=== PATIENT | female | born 1965 | race Caucasian/White ===

== ENCOUNTER → 2018-05-07 | Outpatient (CLI) | payer BC ==
[2005-12-08 08:00] VITALS: PULSE 72; TEMP 97.6
== END ==
LOC: COL.RAD 10:11
DX: N92.1 Excessive and frequent menstruation with irregular cycle (principal)

== ENCOUNTER 2019-06-18 10:04 | Emergency (ER) | payer BC ==
[~2019-06-18] VITALS: Ht 154.9 cm; Wt 77.3 kg
[2019-06-18 10:40] VITALS: TEMP 97.8
[2019-06-18 11:28] LABS: BASO # 0.1 (0.0-0.2); BASO % 0.3 % (0.0-2.0); EOS # 0.1 (0.0-0.7); EOS % 0.7 % (0-4.0); GRAN # 12.2 (1.4-6.5); GRAN % 74.3 % (42.2-75.2); HEMATOCRIT 47.3 % (37.0-47.0); HEMOGLOBIN 15.8 g/dl (12.5-16.0); LYMPH # 3.1 (1.2-3.4); LYMPH % 18.6 % (20.0-51.0); MEAN CELL VOLUME 99 fl (80.0-100.0); MEAN CORPUSCULAR HEMOGLOBIN 33 pg (27.0-31.0); MEAN CORPUSCULAR HGB CONC 33 g/dl (33.0-37.0); MEAN PLATELET VOLUME 9.1 fl (7.4-10.4); MONO # 0.9 (0.1-0.6); MONO % 5.7 % (1.7-9.3); PLATELET COUNT 377 K/mm3 (130-400); REDCELL DISTRIBUTION WIDTH-CV 13.9 % (11.5-14.5)
[2019-06-18 11:42] LABS: ALBUMIN 4.8 gm/dL (3.5-5.0); BILIRUBIN,TOTAL 0.3 mg/dL (0.0-1.0); C-REACTIVE PROTEIN 0.8 mg/dL (0.0-0.9); CALCIUM 10.8 mg/dL (8.4-10.2); CREATININE, serum 0.53 (0.52-1.25); POTASSIUM 3.9 mmol/L (3.4-5.0); TOTAL PROTEIN 8.5 gm/dL (6.4-8.2)
[2019-06-18] MEDS ORDERED: GLUCOPHAGE500 MG/TAB PO (12:17)
[2019-06-18] MEDS ORDERED: LASIX 20MG TABL20 MG PO (12:17)
[2019-06-18] MEDS ORDERED: BENICAR40 MG PO (12:18)
[2019-06-18] MEDS ORDERED: PRAVACHOL10 MG PO (12:18)
[2019-06-18] MEDS ORDERED: FASTIN30 MG PO (12:18)
[2019-06-18 13:04] LABS: COLLECTION METHOD CLEAN CATCH
[2019-06-18 13:21] LABS: MUCOUS Present /lpf; PH 6 (5-8); URINE APPEARANCE Hazy; URINE BACTERIA Rare /hpf; URINE BILIRUBIN Negative (NEGATIVE); URINE BLOOD Negative (NEGATIVE); URINE COLOR Yellow; URINE GLUCOSE Negative (NEGATIVE); URINE KETONE Trace (NEGATIVE); URINE LEUKOCYTE ESTERASE 1+ (NEGATIVE); URINE NITRATE Negative (NEGATIVE); URINE PROTEIN(semi-quant) Negative (NEGATIVE); URINE UROBILINOGEN Negative (NEGATIVE)
[2019-06-18] MEDS ORDERED: OMNICEF 300MG300 MG PO (13:34)
[2019-06-18] MEDS ORDERED: NORCO 325 MG-51 TAB PO (13:35)
[2019-06-18 13:49] VITALS: BP 101/65; PULSE 88
[2019-06-20] MEDS ORDERED: CIPRO 500MG TA500 MG PO (16:46)
== END 2019-06-18 13:55 | disposition home or self-care (01) ==
LOC: COL.ER 10:04
PROVIDERS: Family Medicine
DX: N30.00 Acute cystitis without hematuria (principal); I10 Essential (primary) hypertension; E11.9 Type 2 diabetes mellitus without complications; Z98.890 Other specified postprocedural states; Z79.84 Long term (current) use of oral hypoglycemic drugs
CPT/HCPCS: J2270; J2405; J7030; Q9967

== ENCOUNTER → 2022-02-28 | Outpatient (CLI) | payer BC ==
[2005-12-08 08:00] VITALS: TEMP 97.6
[~2022-02-28] MED LIST: BENICAR40 MG PO; CIPRO 500MG TA500 MG PO; FASTIN30 MG PO; GLUCOPHAGE500 MG/TAB PO; LASIX 20MG TABL20 MG PO; NORCO 325 MG-51 TAB PO; OMNICEF 300MG300 MG PO; PRAVACHOL10 MG PO
== END ==
LOC: MC.RAD 10:55
DX: Z12.31 Encounter for screening mammogram for malignant neoplasm of breast (principal)